=== PATIENT | female | born 1990 | race Caucasian/White ===

== ENCOUNTER 2018-01-12 06:34 | Inpatient (IN) | payer SELFPAY ==
[~2018-01-12] VITALS: Ht 162.6 cm; Wt 75.0 kg
[~2018-01-12 06:34] MED LIST: FERR1TAB23; PRENTAB65 PO
[2018-01-21] MEDS ORDERED: LACTATED RINGER'S 1000ML 1,000 ML IV PRN (11:28)
[2018-01-21] MEDS ORDERED: LACTATED RINGER'S 1000ML 1,000 ML IV SCH (11:28)
[2018-01-21] MEDS ORDERED: LACTATED RINGER'S 1000ML 500 ML IV PRN ×2 (11:28→18:24)
[2018-01-21] MEDS ORDERED: OXYTOCIN 30 UNITS/500ML NSS IV PRN ×2 (11:30→22:45)
[2018-01-21 11:55] LABS: HEMATOCRIT 38.9 % (37-47); HEMOGLOBIN 13.2 g/dL (12.0-16.0); MEAN CELL VOLUME 89.4 fL (80-100); MEAN CORPUSCULAR HEMOGLOBIN 30.3 pg (25-34); MEAN CORPUSCULAR HGB CONC 33.9 g/dl (32-36); MEAN PLATELET VOLUME 11.1 fL (7.4-10.4); PLATELET COUNT 217 K/uL (130-400); RED CELL DISTRIBUTION WIDTH CV 13.9 % (11.5-14.5); WHITE BLOOD COUNT 8.35 K/uL (4.8-10.8)
[2018-01-21 14:24] VITALS: Ht 162.6 cm; Wt 75.0 kg
[2018-01-21] MEDS ORDERED: BUPIVACAINE 0.25% 30 ML VIAL ONE (17:19)
[2018-01-21] MEDS ORDERED: FENTANYL CITRATE INJ 50 MCG/1 ML 2 ML VIAL ONE ×2 (17:19→18:35)
[2018-01-21] MEDS ORDERED: EpHEDrine SULFATE INJ 50 MG/ML AMP ONE (17:19)
[2018-01-21] MEDS ORDERED: FENTANYL 2MCG/ML ROPIV 1.25MG/ML 100ML BAG ONE (17:20)
[2018-01-21] MEDS ORDERED: NALOXONE HCL INJ 1 MG in SODIUM CHLORIDE 0.9% 1000ML 1,000 ML IV PRN (18:24)
[2018-01-21] MEDS ORDERED: NALOXONE HCL INJ 0.4 MG/1 ML VIAL/CARP IV PRN (18:30)
[2018-01-21] MEDS ORDERED: NALBUPHINE HCL INJ 10 MG/ML 1ML AMP IV PRN (18:30)
[2018-01-21] MEDS ORDERED: EpHEDrine SULFATE INJ 50 MG/ML AMP IV PRN (18:30)
[2018-01-21] MEDS ORDERED: FENTANYL 2MCG/ML ROPIV 1.25MG/ML 100ML BAG EPI PRN (18:30)
[2018-01-21] MEDS ORDERED: ONDANSETRON INJ 2 MG/ML 2 ML VIAL IV PRN (18:30)
[2018-01-21] MEDS ORDERED: DiphenhydrAMINE HCL 50 MG/ML VIAL IV PRN (18:30)
[2018-01-21] MEDS ORDERED: LIDOCAINE HCL 2% MPF 5 ML VIAL (20MG/ML) ONE (18:35)
--- NOTE | 2018-01-21 22:37 | Vaginal Delivery Summary ---
Vaginal Delivery Summary Predelivery diagnoses: 27-year-old at 41 weeks 2 days, induction of labor for postdates. Postdelivery diagnoses: Same Procedure: Spontaneous vaginal delivery and repair of second-degree perineal laceration Estimated blood loss: 300 mL Findings: Viable male , Apgars 8 and 9. Weight pending, please see nursery records. Complications: None Description of delivery: The patient progressed to complete with epidural anesthesia she then began to push. She spontaneously vaginally delivered a viable male from the cephalic presentation. Head delivered in the right occiput anterior position, nuchal cord 1 was noted and easily reduced, the anterior shoulder delivered followed by the posterior shoulder followed by the body. The patient was placed on mother's abdomen, a spontaneous cry was heard. Delayed cord clamping was employed, after 1 minute the cord was doubly clamped and cut. a cord segment was obtained. Cord blood was obtained. The placenta was then delivered spontaneously intact with a three-vessel cord. Pitocin was given, the uterus became firm. The bladder was emptied with a red rubber catheter for 200 cc. The uterus and vagina were swept of all clots and debris. The cervix vagina and perineum were inspected, a second-degree perineal laceration was noted and repaired in standard fashion with 3-0 Vicryl. Excellent hemostasis was observed. Sponge, instrument, needle counts were correct at the conclusion of the delivery 2. Mother and baby are recovering in stable and good condition in the room.
[2018-01-21] MEDS ORDERED: HYDROCORTISONE ACETATE 25 MG SUPP PR PRN (22:45)
[2018-01-21] MEDS ORDERED: OXYCODONE/ACETAMINOPHEN 5-325 TAB PO PRN (22:45)
[2018-01-21] MEDS ORDERED: ACETAMINOPHEN 325 MG TAB PO PRN (22:45)
[2018-01-21] MEDS ORDERED: SUPERCREAM 0.870 % 15GM JAR EXT PRN (22:45)
[2018-01-21] MEDS ORDERED: BENZOCAINE 20% AER SPR 82.5 GM CAN EXT PRN (22:45)
[2018-01-21] MEDS ORDERED: LANOLIN OINT EXT PRN (22:45)
[2018-01-22 00:45] VITALS: BP 119/68; PULSE 99; TEMP 36.7; O2SAT 97
[2018-01-22] MEDS: IBUPROFEN 600 MG TAB PO PRN ×4 (01:24→20:21)
[2018-01-22 07:07] LABS: HEMATOCRIT 33.5 % (37-47); HEMOGLOBIN 11.5 g/dL (12.0-16.0)
--- NOTE | 2018-01-22 07:47 | Progress Note ---
Subjective Jan 22, 2018. Subjective conversation w/ patient Ambulation: ambulating normally Voiding: no voiding problems Passing Gas: Yes Diet Tolerance: Regular Diet Lochia: Moderate Feeding Type: Breast Feeding Pain: Improving Review of Systems Constitutional: No fever, No chills Respiratory: No shortness of breath Cardiac: No chest pain, No palpitations Abdomen: No nausea, No vomiting Female : No dysuria Objective Vital Signs Date Time Temp Pulse Resp B/P (MAP) Pulse Ox O2 Delivery O2 Flow Rate FiO2 01/22/18 00:45 97 Room Air 01/22/18 00:45 36.7 99 20 119/68 (85) 97 Room Air Physical Exam General Appearance: WELL-APPEARING, NO APPARENT DISTRESS Respiratory/Chest: normal breath sounds, no respiratory distress Cardiovascular: regular rate, rhythm Abdomen: soft, + tenderness Fundus: Firm Extremities: no calf tenderness Laboratory Results Last 24 Hours Test 01/21/18 11:45 01/22/18 06:36 White Blood Count 8.35 K/uL Red Blood Count 4.35 M/uL Hemoglobin 13.2 g/dL 11.5 g/dL Hematocrit 38.9 % 33.5 % Mean Corpuscular Volume 89.4 fL Mean Corpuscular Hemoglobin 30.3 pg Mean Corpuscular Hemoglobin Concent 33.9 g/dl RDW Standard Deviation 46.0 fL RDW Coefficient of Variation 13.9 % Platelet Count 217 K/uL Mean Platelet Volume 11.1 fL Assessment and Plan Post- Day#: 1 Continue Routine Care: Routine care Analgesia prn Ambulation encouraged. PGY1 Resident, Kalani Barksdale MD Resident Physician Supervision Note: I was present with Dr. Barksdale during the history and exam. I discussed the case with the resident and agree with the findings and plan as documented in the note. Any exceptions or clarifications are listed here: PPD#1 doing well. DC home tomorrow. Documented By: Priscila Guthrie Resident Involvement: Resident Care Provided Care Provided: OB Delivery
[2018-01-22 07:53] VITALS: BP 102/65; PULSE 88; TEMP 36.7; O2SAT 96
--- NOTE | 2018-01-22 08:40 | Anesthesia Procedure Note ---
Anesthesia Epidural Removal Nt Date & Time Jan 22, 2018 at 08:39 Vital Signs Pain Intensity: 4.0 Vital Signs Past 12 Hours Date Time Temp Pulse Resp B/P (MAP) Pulse Ox O2 Delivery O2 Flow Rate FiO2 01/22/18 00:45 97 Room Air 01/22/18 00:45 36.7 99 20 119/68 (85) 97 Room Air Notes Mental Status: alert / awake / arousable, participated in evaluation Nausea / Vomiting: adequately controlled Pain: adequately controlled Airway Patency, RR, SpO2: stable & adequate BP & HR: stable & adequate Hydration State: stable & adequate Neuraxial Anesthesia: was administered Anesthetic Complications: no major complications apparent, pt satisfied with anesthetic care Epidural: removed without complications, with tip intact
[2018-01-22] MEDS: DOCUSATE SODIUM 100 MG CAP PO SCH ×2 (08:55→20:21)
[2018-01-22 11:05] VITALS: BP 123/72; PULSE 89; TEMP 36.5; O2SAT 96
[2018-01-22 16:05] VITALS: BP 120/79; PULSE 101; TEMP 36.6; O2SAT 98
[2018-01-22] MEDS ORDERED: BISACODYL 5 MG TABEC PO SCH (20:00)
[2018-01-22 20:25] VITALS: BP 107/68; PULSE 85; TEMP 36.8; O2SAT 97
[2018-01-23 00:35] VITALS: BP 123/73; PULSE 90; TEMP 36.5; O2SAT 97
[2018-01-23] MEDS: IBUPROFEN 600 MG TAB PO PRN ×2 (00:46→08:49)
[2018-01-23 07:35] VITALS: BP 107/62; PULSE 80; TEMP 36.7; O2SAT 97
[2018-01-23] MEDS: DOCUSATE SODIUM 100 MG CAP PO SCH (08:48)
--- NOTE | 2018-01-23 09:16 | Progress Note ---
Subjective Jan 23, 2018. Subjective conversation w/ patient, physical exam, lab review Ambulation: ambulating normally Voiding: no voiding problems Passing Gas: Yes Diet Tolerance: Regular Diet Lochia: Small Feeding Type: Breast Feeding Pain: controlled Objective Vital Signs Date Time Temp Pulse Resp B/P (MAP) Pulse Ox O2 Delivery O2 Flow Rate FiO2 01/23/18 07:35 36.7 80 18 107/62 (77) 97 Room Air 01/23/18 07:35 97 Room Air 01/23/18 00:35 36.5 90 20 123/73 (90) 97 Room Air 01/22/18 20:25 97 Room Air 01/22/18 20:25 36.8 85 20 107/68 (81) 97 Room Air 01/22/18 16:05 36.6 101 18 120/79 (93) 98 Room Air 01/22/18 16:05 98 Room Air 01/22/18 11:05 36.5 89 18 123/72 (89) 96 Room Air Physical Exam General Appearance: WELL-APPEARING, WD/WN, NO APPARENT DISTRESS Abdomen: non tender, soft Fundus: Firm, Non-Tender, Relation to Umbilicus (at u) Extremities: non-tender, normal inspection, no pedal edema Assessment and Plan Post- Day#: 2 Continue Routine Care: Doing well. Instructions given. Plan d/c.
--- NOTE | 2018-01-23 09:17 | Discharge Instructions ---
Discharge Instructions Date of Service Jan 23, 2018. Admission Reason for Admission: IUP Discharge Discharge Diagnosis / Problem: s/p vaginal delivery Discharge Goals Goal(s): Routine recovery after delivery Medications Continue Dispensed Medications: supercream, dermaplast, tucks, lansinoh Activity Recommendations Activity Limitations: per Instructions/Follow-up section . Instructions / Follow-Up Instructions / Follow-Up ACTIVITY RECOMMENDATIONS: * Gradual return to full activity over the next 2-3 weeks. * No lifting - nothing heavier than baby over the next 2-3 weeks. * Do not engage in vigorous exercise, sexual activity or sports until cleared by your physician. * Do not drive or operate any motorized equipment until cleared by your physician. * You may shower/bathe daily. MEDICATIONS: For discomfort or pain, you may use Acetaminophen (Tylenol), Ibuprofen (Advil), or Naproxen (Aleve) following the package directions. For constipation you may use Colace following the package directions. BREAST CARE: If you are not breast feeding: * Wear a supportive bra 24 hours a day for one to two weeks. * Avoid stimulating your breasts and nipples as much as possible during the first few weeks after delivery. * When taking a shower, have the warm water hit your back, not breasts. * When your breasts feel full, apply ice packs. Usually three to four times a day helps ease the discomfort. * Take a mild pain medication (Tylenol / Motrin) when you are uncomfortable. If breast feeding: * Use breast milk to lubricate nipples. Lansinoh cream may be used for sore nipples. You do not need to remove cream prior to breast feeding. If using a different brand of cream, check the label for directions regarding removal of cream prior to nursing. * Wear a supportive bra. * If having problems with breasts or breast feeding, call a [employer] consultant or your health care provider. EPISIOTOMY CARE: After delivery, if you have an episiotomy (stitches), the following steps will ease discomfort and aid healing. * For the first 24 hours after delivery, place ice packs next to your episiotomy to help reduce swelling. * After the first 24 hour-period, sitz baths, either portable or in the tub, are suggested. A shower with a shower arm sprayed over the episiotomy may be comforting. * Sulma care should be done after each voiding and bowel movement. Squirt warm water from a plastic bottle over the perineum (region of the body between the anus and urinary opening) and pat dry. * Use Dermoplast to ease discomfort. Shake container. [place] directly over the episiotomy. Place a Tucks on a clean sanitary pad next to your episiotomy. SPECIAL CARE INSTRUCTIONS: When you are discharged from the hospital, it is important for you to follow the instructions listed below: * During the first week at home, you should be able to care for yourself and your baby. In addition, the usual light household activities are encouraged. * Limit your activities to the way you feel. Do not try to clean the house or move furniture. Be sensible. * If you actively engage in sports and have done so up until the time of your delivery, you may resume these activities as soon as you feel able. This may take up to one month or even longer. Use good judgment. * Continue to take your vitamins for at least six weeks after the of your baby. * Your diet need not be limited unless you were on a special diet before your delivery. Breast-feeding mothers need around 2500 calories per day and at least 64-80 ounces of fluid per day (8 to 10 glasses). * You should eat foods from the four major food groups. Crash diets or fad diets are to be avoided. Eating lean meats, fresh fruits and vegetables, low-fat dairy products, high fiber foods and a regular exercise program, will help you get back to your pre- weight without putting your health at risk. * Constipation is sometimes a problem after delivery. Take a mild laxative as needed. If breast feeding, Milk of Magnesia is acceptable to use. You may use a suppository or Fleets enema if no episiotomy. * A daily shower or tub bath is suggested. Be sure to thoroughly and gently dry the perineum. * A bloody vaginal discharge will usually continue until around four weeks post . A small amount of bleeding may continue for as long as six weeks. Vaginal discharge changes from the bright red bleeding after delivery to pink then brownish and finally yellowish-pink before becoming white and disappearing. * Bleeding may increase with activity. Your first period may come in 4-8 weeks. If you are breast feeding, your period may be delayed even longer. * Crary (sex) can begin whenever both you and your partner feel comfortable and do not have any form of genital infection. It is recommended that you wait at least six weeks for internal and external healing to occur. If you have questions, please talk to your health care practitioner. A condom should be used to prevent infection and . * Foreplay, gentle intercourse and lubrication is very important the first several times to prevent pain. A water-based lubricant such as K-Y jelly or Astroglide may be used. * If you have RH negative blood and your baby is RH positive, you will receive RHOGAM by injection prior to discharge. The nurse will give you a card to keep with you that has the date and place that you received RHOGAM after delivery. * During your care, you had a Rubella screen done to check for the presence of rubella antibodies in your blood. If your test was negative, you will receive a Rubella vaccine prior to discharge. This vaccine may cause a fever, soreness at the injection site and flu-like symptoms. If these symptoms persist, notify your health care practitioner. is not advised for one month after a Rubella vaccine. * Verbalizes understanding of car seat law as reviewed with patient nursing. * Car Seat hand-out given and reviewed with patient by nursing. * Shaken baby information reviewed with patient by nursing. Call you doctor if: * Heavy bleeding (saturating several pads an hour) or passing clots the size of your fist. * A fever >101 degrees F (38.3 degrees C) on two occasions four hours apart and /or chills. * Unusual pain in the pelvic or vaginal areas. * "Baby Blues" lasting longer than two weeks. If you have any questions or concerns, call your health care practitioner at . FOLLOW UP VISIT: * Please call the office at to schedule a 6 week examination. It is important you keep this appointment. It is important for you to make arrangements for either yearly or twice yearly check-ups thereafter. Current Hospital Diet Patient's current hospital diet: Regular OB Diet Discharge Diet Recommended Diet: Regular Diet Pending Studies Studies pending at discharge: no Medical Emergencies . Who to Call and When: Medical Emergencies: If at any time you feel your situation is an emergency, please call [phone] immediately. . Non-Emergent Contact Non-Emergency issues call your: Social Services Manager . . "Provider Documentation" section prepared by Radha Smith. .
[2018-01-23 15:40] VITALS: BP_DIAS 62; PULSE 80; TEMP 36.7
== END 2018-01-23 16:50 | disposition home or self-care (01) | DRG 775 ==
LOC: C.LD 01-21 11:25 → C.OBG 01-22 00:24
PROVIDERS: ADMIT Obstetrics & Gynecology; ATTEND Obstetrics & Gynecology
PROC: 10E0XZZ Delivery of Products of Conception, External Approach (ICD-10-PCS; principal; 2018-01-21)
PROC: 0KQM0ZZ Repair Perineum Muscle, Open Approach (ICD-10-PCS; principal; 2018-01-21)
DX: O48.0 Post-term pregnancy (principal); O70.1 Second degree perineal laceration during delivery; O69.81X0 Labor and delivery complicated by cord around neck, without compression, not applicable or unspecified; Z3A.41 41 weeks gestation of pregnancy; Z37.0 Single live birth; Z88.0 Allergy status to penicillin; Z88.2 Allergy status to sulfonamides

== ENCOUNTER 2020-09-25 04:50 | Inpatient (IN) ==
[2020-09-25] MEDS ORDERED: OXYTOCIN 30 UNITS/500 ML BAG IV PRN ×2 (08:44→13:27)
[2020-09-25] MEDS: LACTATED RINGER'S 1,000 ML IV PRN ×2 (08:55→09:46)
[2020-09-25] MEDS ORDERED: ePHEDrine sulfate 50 MG/ML AMP ONE (09:09)
[2020-09-25] MEDS ORDERED: SODIUM CHLORIDE 0.9% INJ 10 ML VIAL ONE (09:09)
[2020-09-25] MEDS ORDERED: fentaNYL 2MCG/ML ROPIVACAINE 1.25MG/ML 100 ML BAG EPI ONE (09:10)
[2020-09-25] MEDS ORDERED: BUPIVACAINE 0.25% 30 ML VIAL ONE (09:10)
[2020-09-25] MEDS ORDERED: fentaNYL citrate 100 MCG/2 ML VIAL ONE (09:10)
[2020-09-25 09:25] LABS: Hematocrit (blood only) 35.5 % (37-47); Hemoglobin 12.4 g/dL (12.0-16.0); Mean Corpuscular Hemoglobin 30.1 pg (25-34); Mean Corpuscular Hgb Conc 34.9 g/dL (32-36); Mean Corpuscular Volume 86.2 fL (80-100); Mean Platelet Volume 10.6 fL (7.4-10.4); Platelet Count 242 K/uL (130-400); RDW Coefficient of Variation 14.1 % (11.5-14.5); RDW Standard Deviation 44.2 fL (36.4-46.3); Red Blood Count 4.12 M/uL (4.2-5.4); White Blood Count 11.29 K/uL (4.8-10.8)
[2020-09-25] MEDS ORDERED: NALOXONE HCL 0.4 MG/1 ML VIAL/CARP IV PRN (09:39)
[2020-09-25] MEDS ORDERED: fentaNYL 2MCG/ML ROPIVACAINE 1.25MG/ML 100 ML BAG EPI PRN (09:39)
[2020-09-25] MEDS ORDERED: diphenhydrAMINE 50 MG/ML VIAL IV PRN (09:39)
[2020-09-25] MEDS ORDERED: NALOXONE HCL 1 MG in SODIUM CHLORIDE 0.9% 1000ML 1,000 ML IV PRN (09:39)
[2020-09-25] MEDS ORDERED: ePHEDrine sulfate 50 MG/ML AMP IV PRN (09:39)
--- NOTE | 2020-09-25 09:42 | Anesthesiology Consultation ---
Date of Service September 25, 2020 Assessment & Plan (1) Encounter for pre-operative examination: Chart Review Chart Review: Patient NOT seen in Pre Admission Testing and Acceptable Risk for Labor Epidural Consults Requested none History Height/Weight Height: 5 ft 4 in Weight: 78.018 kg Allergies Allergy/AdvReac Type Severity Reaction Status Date / Time amoxicillin Allergy Mild GI SYMPTOMS Verified 09/25/20 07:01 Sulfa (Sulfonamide Allergy Mild GI SYMPTOMS Verified 09/25/20 07:01 Antibiotics) Medications Home Medications Medication Instructions Recorded Confirmed Last Taken prenat.vits,paradise,yiz-bavh-vtksn 1 tab PO DAILY 02/14/20 09/25/20 09/23/20 ferrous sulfate 1 tab PO WK 08/12/20 09/25/20 09/22/20 Active Medications Generic Name Dose Route Start Last Admin Trade Name Freq PRN Reason Stop Dose Admin Lactated Ringer's 1,000 mls @ 125 mls/hr 09/25/20 08:44 09/25/20 09:46 Lr IV 09/27/20 08:43 999 mls/hr .Q8H PRN Administration L&D Protocol Protocol Exercise / Class Metabolic Activity II 4-5 Yardwork/Stairs/Walk up hill Past Family History Family History Grandfather (Maternal) Myocardial infarction Hypertension Mother Hypertension Past Surgical History Surgical History S/P wisdom tooth extraction Past Anesthesia History No Hx of Anesthesia Complications and No Family Hx of Anesthesia Complications History of PONV No Hx of PONV and No Hx of Motion Sickness Social History Smoking Status: Never smoker Hx Alcohol Use: No Hx Substance Use: No Physical Exam Vital Signs Last Vital Signs Temp 36.7 C 09/25/20 07:23 Pulse 79 09/25/20 09:38 Resp 20 09/25/20 07:23 BP 104/65 09/25/20 09:14 Pulse Ox 98 09/25/20 09:38 Testing Laboratory Results 09/25/20 09:05
--- NOTE | 2020-09-25 13:16 | Delivery Summary ---
Vaginal Delivery Summary Date of Service September 25, 2020 Patient arrived in labor and delivery in active labor requested epidural group B strep negative Covid negative she requested epidural and received this artificial rupture membranes was then performed she progressed to fully dilated and pushed over 2 contractions a baby in left occiput anterior position fluid was clear no nuchal cord gentle traction was used no excessive force live vigorous male infant cord clamped and cut cord blood obtained placenta removed with gentle traction IV Pitocin started first-degree tear repaired with 3-0 Vicryl sponge and instrument counts correct estimated blood loss 300 mL Vaginal Delivery Summary and 1st Degree LAC [facility] Vaginal Delivery Charge Vaginal Delivery Codes: 84349 global code for the antepartum, delivery, and post- Delivery Type Details: and 1st Degree LAC Procedure Anesthesia type: Epidural
[2020-09-25] MEDS ORDERED: ACETAMINOPHEN 325 MG TAB PO PRN (13:27)
[2020-09-25] MEDS ORDERED: BENZOCAINE 20% AER SPR 82.5 GM CAN EXT PRN (13:27)
[2020-09-25] MEDS ORDERED: HYDROCORTISONE ACETATE 25 MG SUPP PR PRN (13:27)
[2020-09-25] MEDS ORDERED: DIPHTHERIA/TETANUS/PERTUSSIS 0.5 ML SYR/VIAL IM ONE (13:27)
[2020-09-25] MEDS ORDERED: SUPERCREAM 0.870% 15 GM JAR EXT PRN (13:27)
[2020-09-25] MEDS ORDERED: bisacodyL 10 MG SUPP PR PRN (13:27)
[2020-09-25] MEDS ORDERED: oxyCODONE/ACETAMINOPHEN 5mg/325mg TAB PO PRN (13:27)
--- NOTE | 2020-09-25 14:24 | Anesthesia Procedure Note ---
Date of Service September 25, 2020 Anesthesia Post Epidural Note Vital Signs Vital Signs: Temp Pulse Resp BP Pulse Ox 36.6 C 70 18 107/55 L 95 09/25/20 12:54 09/25/20 14:12 09/25/20 13:50 09/25/20 14:12 09/25/20 13:11 Pain Intensity Bilateral Abdomen: Pain Intensity: 0 Notes Mental Status: alert / awake / arousable and participated in evaluation Patient Amnestic to Procedure: No Nausea / Vomiting: adequately controlled Pain: adequately controlled Airway Patency, RR, SpO2: stable & adequate BP & HR: stable & adequate Hydration State: stable & adequate Neuraxial Anesthesia: was administered and sensory block is resolving Anesthetic Complications: no major complications apparent and Pt Satisfied with anesthetic care Epidural: Removed without complications and With tip intact
[2020-09-25] MEDS: IBUPROFEN 600 MG TAB PO PRN (17:52)
[2020-09-25] MEDS: DOCUSATE SODIUM 100 MG CAP PO SCH (21:39)
[2020-09-26 06:15] LABS: Hematocrit (blood only) 34.8 % (37-47); Hemoglobin 11.8 g/dL (12.0-16.0); Mean Corpuscular Hemoglobin 29.7 pg (25-34); Mean Corpuscular Hgb Conc 33.9 g/dL (32-36); Mean Corpuscular Volume 87.7 fL (80-100); Mean Platelet Volume 10.6 fL (7.4-10.4); Platelet Count 214 K/uL (130-400); RDW Coefficient of Variation 14.1 % (11.5-14.5); Red Blood Count 3.97 M/uL (4.2-5.4); White Blood Count 10.44 K/uL (4.8-10.8)
--- NOTE | 2020-09-26 07:14 | Obstetrical Progress Note ---
Date of Service <Ava العلي DO - Last Filed: 09/26/20 07:14> September 26, 2020 Assessment & Plan <Ava العلي DO - Last Filed: 09/26/20 07:14> (1) state: PPD #1 - PNL: Rh pos, RI, GBS neg, COVID neg - Feels well today. Eating well, voiding well, ambulating well. - Pain well controlled with ibuprofen 600mg Q4H PRN - Routine care -- OOB, ambulation, diet progression as tolerated - After discharge will have 6 week follow-up with Dr. Jolly. - Patient desires d/c home today; plan for d/c home 24 hours pending continued satisfactory progress. Subjective <Ava العلي DO - Last Filed: 09/26/20 07:14> Mimi Farrar is a 30 y/o female who is PPD #1 following spontaneous vaginal delivery at 39 weeks. She reports feeling well overall this morning. Minimal abdominal cramping and 2/10 pain well managed on analgesics. Voiding without dysuria. Tolerating meals overnight without difficulty. Patient has been able to ambulate some. She is passing gas. Has persistent lochia with some improvement this morning. Currently . Review of Systems Denies fever or chills. Denies shortness of breath or cough. Denies chest pain. Denies breast pain. Denies dysuria. Denies leg pain or leg swelling. Denies headache or changes in vision. Physical Exam <Ava العلي DO - Last Filed: 09/26/20 07:14> General: Alert, oriented. No acute distress. Cardiac: Regular rate and rhythm. No murmurs. Respiratory: Clear to auscultation bilaterally a/p, no wheezes/rales/rhonchi. No increased work of breathing. Symmetrical chest rise. No respiratory distress. Abdomen: Soft, nontender, nondistended. Bowel sounds present. Uterus: Uterine fundus firm, palpable 1 cm below umbilicus. Lower Extremities: No lower extremity edema or swelling. No deep calf pain. Leslie an's negative bilaterally. Results & Data ([facility]) <Ava العلي DO - Last Filed: 09/26/20 07:14> Vital Signs (Past 12 Hours) Vital Signs Temp Pulse Resp BP Pulse Ox 09/26/20 03:30 36.5 C 78 18 111/74 09/25/20 23:35 36.6 C 77 18 118/74 97 09/25/20 20:05 36.9 C 86 18 102/66 97 Laboratory Results 09/26/20 09/25/20 Range/Units 05:33 09:05 WBC 10.44 11.29 H (4.8-10.8) K/uL RBC 3.97 L 4.12 L (4.2-5.4) M/uL Hgb 11.8 L 12.4 (12.0-16.0) g/dL Hct 34.8 L 35.5 L (37-47) % MCV 87.7 86.2 (80-100) fL MCH 29.7 30.1 (25-34) pg MCHC 33.9 34.9 (32-36) g/dL RDW Std Deviation 45.0 44.2 (36.4-46.3) fL RDW Coeff of Nagi 14.1 14.1 (11.5-14.5) % Plt Count 214 242 (130-400) K/uL MPV 10.6 H 10.6 H (7.4-10.4) fL <Jose Jolly MD, FACOG - Last Filed: 09/26/20 07:18> Co-Signing Physician Notes Resident Physician Supervision Note: I was present with Dr. العلي during the history and exam. I discussed the case with the resident and agree with the findings and plan as documented in the note. Any exceptions or clarifications are listed here: [None] Documented By: Jose Jolly MD, FACOG Resident Activity Tracking <Ava العلي DO - Last Filed: 09/26/20 07:14> Resident Involvement: Resident Care Provided Care Provided: OB Delivery
[2020-09-26] MEDS ORDERED: PRENATAL VITAMIN 1 TAB PO SCH (08:00)
[2020-09-26] MEDS: DOCUSATE SODIUM 100 MG CAP PO SCH (08:29)
[2020-09-26] MEDS ORDERED: NON-FORMULARY MEDICATION (Prenat.Vits,Cal,Min-Iron-Folic tablet) PO SCH (09:00)
[2020-09-26] MEDS: IBUPROFEN 600 MG TAB PO PRN (12:24)
[2020-09-26] MEDS ORDERED: bisacodyL 5 MG TABEC PO SCH (20:00)
[2020-09-29] MEDS ORDERED: FERROUS SULFATE 325 MG TAB PO SCH (09:00)
== END 2020-09-26 14:40 | disposition home or self-care (01) | DRG 807 ==
LOC: OPB 04:50 → 4S1 04:53 → 4S2 16:10